=== PATIENT | female | born 1965 | race Caucasian/White ===

== ENCOUNTER 2016-04-16 20:46 | Emergency (ER) | payer MEDICAID ==
[~2016-04-16] VITALS: Ht 165.1 cm; Wt 63.6 kg
[2016-04-16 22:28] LABS: MEAN CORPUSCULAR HGB CONC 34.5 g/dL (31.0-37.0); MEAN CORPUSCULAR VOLUME 91 FL (80-100); MEAN PLATELET VOLUME 9.1 FL (6.0-9.5); PLATELET COUNT 293 10^3uL (150-450); WHITE BLOOD COUNT 5.17 10^3uL (4.0-11.0)
[2016-04-16 22:32] LABS: MEAN CORPUSCULAR HEMOGLOBIN 31.5 PG (26.0-34.0)
[2016-04-16 22:38] LABS: ALBUMIN 4.3 g/dL (3.4-5.0); ALKALINE PHOSPHATASE 67 U/L (38-126); ANION GAP 13.2 MEQ/L (3-15); BUN/CREATININE RATIO 17 (10-20); TOTAL PROTEIN 7.6 g/dL (6.4-8.5)
--- NOTE | 2016-04-16 22:50 | NUR ---
Pt states that she had the heavy chest pressure and at that time, she states that she looked up seen the monitor and her heart rate went up to 74. At the time the RN went in pt's HR is 72 and NSR on the monitor.
[2016-04-16 23:35] LABS: BAND NEUTROPHILS % 0 % (0-6)
[2016-04-16 23:36] LABS: MONOCYTES # 0.4 #; MONOCYTES % 7 % (3-11)
[2016-04-16 23:37] LABS: EOSINOPHILS % 7 % (0-4); LYMPHOCYTES # 2.2 #; SEGMENTED NEUTROPHILS % 38 % (51-67)
[2016-04-16 23:38] LABS: RBC MORPH NORMAL (NORMAL); TOTAL CELLS COUNTED 100
[2016-04-17 00:30] VITALS: BP 107/79
== END 2016-04-17 00:20 | disposition home or self-care (01) ==
LOC: ED 20:50
DX: R07.89 Other chest pain (principal)
CPT/HCPCS: 36415; 71010; 80053; 84484; 85025; 93005; 93010; 99284